=== PATIENT | female | born 1995 ===

== ENCOUNTER 2016-11-23 18:53 | Emergency (ER) | payer SELFPAY ==
[~2016-11-23] VITALS: Ht 162.6 cm; Wt 60.5 kg
[2016-11-23 19:03] VITALS: Ht 162.6 cm; Wt 60.5 kg
== END 2016-11-23 22:20 | disposition left against medical advice (07) ==
LOC: FTE 18:53
DX: Z53.21 Procedure and treatment not carried out due to patient leaving prior to being seen by health care provider (principal)